=== PATIENT | female | born 1995 | race African-American/Black ===

== ENCOUNTER 2019-01-15 07:09 | Emergency (ER) | payer SELFPAY ==
[~2019-01-15] VITALS: Ht 175.3 cm; Wt 69.5 kg
[2019-01-15] MEDS ORDERED: ACET-2247 PO (07:15)
[2019-01-15] MEDS ORDERED: ACETAMINOPHEN 500 MG TABLET PO ONE (08:45)
[2019-01-15 14:05] VITALS: BP 110/61
== END 2019-01-15 14:16 | disposition home or self-care (01) ==
LOC: EMS 07:11
DX: S06.0X1A Concussion with loss of consciousness of 30 minutes or less, initial encounter (principal); F32.9 Major depressive disorder, single episode, unspecified; Z88.0 Allergy status to penicillin; Z79.899 Other long term (current) drug therapy; W17.89XA Other fall from one level to another, initial encounter; Y93.89 Activity, other specified; Y92.89 Other specified places as the place of occurrence of the external cause; Y99.8 Other external cause status
CPT/HCPCS: 70450

== ENCOUNTER 2021-12-12 09:18 | Emergency (ER) | payer MEDICAID ==
[~2021-12-12] VITALS: Ht 175.3 cm; Wt 70.9 kg
[~2021-12-12 09:18] MED LIST: ACET-2247 PO
[2021-12-12] MEDS ORDERED: IBUPROFEN 600 MG TABLET PO ONE (10:45)
[2021-12-12 11:27] VITALS: BP 117/68
[2021-12-12] MEDS ORDERED: DiphenhydrAMINE/ZINC ACET 30 GM CREAM TP ONE (11:30)
[2021-12-12] MEDS ORDERED: IBUP-2070 PO (11:40)
== END 2021-12-12 11:45 | disposition home or self-care (01) ==
LOC: EMS 09:18
DX: R07.89 Other chest pain (principal); M54.9 Dorsalgia, unspecified; S80.862A Insect bite (nonvenomous), left lower leg, initial encounter; S80.861A Insect bite (nonvenomous), right lower leg, initial encounter; F32.A Depression, unspecified; Z88.1 Allergy status to other antibiotic agents; W57.XXXA Bitten or stung by nonvenomous insect and other nonvenomous arthropods, initial encounter; Y93.89 Activity, other specified; Y92.89 Other specified places as the place of occurrence of the external cause; Y99.8 Other external cause status
CPT/HCPCS: 71046; 99283